=== PATIENT | female | born 1965 | race Caucasian/White ===

== ENCOUNTER 2022-01-04 07:55 | Day surgery (SDC) | payer MEDICAID, SELFPAY ==
[~2022-01-04] VITALS: Ht 170.2 cm; Wt 90.7 kg
[2022-01-04] MEDS ORDERED: MEPERIDINE 100 MG INJ. 100 MG/ML VIAL ONE (09:02)
[2022-01-04] MEDS ORDERED: MIDAZOLAM HCL 5 MG/5 ML VIAL ONE (09:02)
[2022-01-04 10:30] VITALS: BP_SYST 106
== END 2022-01-04 10:30 | disposition home or self-care (01) ==
LOC: SDS 07:55 → SMU 08:01 → SDS 10:30
PROVIDERS: ATTEND Internal Medicine Gastroenterology
DX: Z12.11 Encounter for screening for malignant neoplasm of colon (principal); K64.9 Unspecified hemorrhoids; Z20.822 Contact with and (suspected) exposure to COVID-19
CPT/HCPCS: 36415; 45378; 82962; 87426; 99152; G0378; J2175; J2250